=== PATIENT | female | born 2000 | race Hispanic/Latino ===

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

== ENCOUNTER 2020-05-07 12:25 | Emergency (ER) | payer MEDICAID, OTHER | END 2020-05-07 13:25 | disposition home or self-care (01) | LOC: EDH 12:25 | DX: L02.91 Cutaneous abscess, unspecified (principal) ==

== ENCOUNTER 2020-05-29 08:13 | Emergency (ER) | payer OTHER | END 2020-05-29 09:13 | disposition home or self-care (01) | LOC: EDH 08:13 | DX: N64.89 Other specified disorders of breast (principal) ==